=== PATIENT | female | born 1995 | race Caucasian/White ===

== ENCOUNTER 2017-12-04 10:31 | Emergency (ER) | payer MEDICARE ==
[~2017-12-04] VITALS: Ht 162.6 cm; Wt 88.0 kg
[2017-12-04 10:57] VITALS: BP 136/93
== END 2017-12-04 17:22 | disposition left against medical advice (07) ==
LOC: ER 12:20
DX: M54.2 Cervicalgia (principal); M54.9 Dorsalgia, unspecified; M79.604 Pain in right leg; Z53.21 Procedure and treatment not carried out due to patient leaving prior to being seen by health care provider